=== PATIENT | female | born 1970 | race Caucasian/White ===

== ENCOUNTER → 2016-09-15 | Outpatient (CLI) | payer BC ==
[~2016-09-15] MED LIST: ASCO500T16 PO; CHOL100027 PO; DHEA PO; EVENING PRIMROSE PO; HYD10 PO; HYDR5TAB PO; HYDR5TAB57 PO; MIDODRINE 5 MG PO; MULTTAB58 PO; VITA400C3 PO
[2016-09-15 09:39] LABS: BASO % 0.3 %; BASO ABS # 0.02 K/uL (0-0.2); COMPLETE YES; HEMATOCRIT 39.6 % (37-47); IG% 0.1 %; LYMPH ABS # 2.39 K/uL (1.2-3.4); MEAN CELL VOLUME 95.7 fL (80-100); MEAN CORPUSCULAR HEMOGLOBIN 32.4 pg (25-34); MEAN CORPUSCULAR HGB CONC 33.8 g/dl (32-36); MEAN PLATELET VOLUME 10.8 fL (7.4-10.4); NEUT % 58.6 %; PLATELET COUNT 195 K/uL (130-400); RED BLOOD COUNT 4.14 M/uL (4.2-5.4); WHITE BLOOD COUNT 7.24 K/uL (4.8-10.8)
[2016-09-15 09:52] LABS: BLOOD UREA NITROGEN 12 mg/dl (7-18); BUN/CREATININE RATIO 16.4 (10-20); CALCIUM 8.5 mg/dl (8.5-10.1); CARBON DIOXIDE 25 mmol/L (21-32); CHLORIDE 108 mmol/L (98-107); CHOLESTEROL 142 mg/dl (0-200); CREATININE 0.72 mg/dl (0.60-1.20); GLUCOSE 82 mg/dl (70-99); POTASSIUM 3.7 mmol/L (3.5-5.1); SODIUM 144 mmol/L (136-145); TRIGLYCERIDES 109 mg/dl (0-150); VERY LOW DENSITY LIPOPROT CALC 22 mg/dl
[2016-09-15 10:02] LABS: CHOLESTEROL/HDL RATIO 1.9; FERRITIN 105.1 ng/ml (8.0-388.0); HDL CHOLESTEROL 74 mg/dl; LDL CHOLESTEROL CALCULATED 46 mg/dl; THYROID STIMULATING HORMONE < 0.005 uIu/ml (0.300-4.500)
== END | disposition home or self-care (01) ==
LOC: C.LAB 07:13
DX: E03.9 Hypothyroidism, unspecified (principal); R53.83 Other fatigue; E61.1 Iron deficiency; E55.9 Vitamin D deficiency, unspecified; Z13.220 Encounter for screening for lipoid disorders

== ENCOUNTER → 2016-12-04 | Outpatient (CLI) | payer BC ==
[2016-12-04 10:39] LABS: FERRITIN 110.5 ng/ml (8.0-388.0); THYROID STIMULATING HORMONE < 0.005 uIu/ml (0.300-4.500)
== END | disposition home or self-care (01) ==
LOC: C.LAB 07:11
PROVIDERS: ATTEND Internal Medicine Endocrinology, Diabetes & Metabolism
DX: E27.40 Unspecified adrenocortical insufficiency (principal); E03.9 Hypothyroidism, unspecified; E55.9 Vitamin D deficiency, unspecified; E61.1 Iron deficiency

== ENCOUNTER → 2017-05-25 | Outpatient (CLI) | payer BC ==
[2017-05-25 10:04] LABS: BASO % 0.2 %; BASO ABS # 0.02 K/uL (0-0.2); COMPLETE YES; EOS % 0.6 %; HEMATOCRIT 41.1 % (37-47); IG% 0.2 %; LYMPH % 13.1 %; LYMPH ABS # 1.64 K/uL (1.2-3.4); MEAN CELL VOLUME 95.6 fL (80-100); MEAN CORPUSCULAR HEMOGLOBIN 32.1 pg (25-34); MEAN CORPUSCULAR HGB CONC 33.6 g/dl (32-36); MEAN PLATELET VOLUME 10.8 fL (7.4-10.4); MONO % 5.9 %; PLATELET COUNT 227 K/uL (130-400); WHITE BLOOD COUNT 12.55 K/uL (4.8-10.8)
[2017-05-25 10:41] LABS: BLOOD UREA NITROGEN 13 mg/dl (7-18); BUN/CREATININE RATIO 20.6 (10-20); CALCIUM 8.5 mg/dl (8.5-10.1); CARBON DIOXIDE 26 mmol/L (21-32); CHLORIDE 108 mmol/L (98-107); CREATININE 0.64 mg/dl (0.60-1.20); GLUCOSE 74 mg/dl (70-99); SODIUM 141 mmol/L (136-145)
[2017-05-25 10:52] LABS: FERRITIN 95.5 ng/ml (8.0-388.0); THYROID STIMULATING HORMONE < 0.005 uIu/ml (0.300-4.500)
== END | disposition home or self-care (01) ==
LOC: C.LAB 07:21
DX: R53.83 Other fatigue (principal); E55.9 Vitamin D deficiency, unspecified; E61.1 Iron deficiency; I95.1 Orthostatic hypotension

== ENCOUNTER 2017-08-19 21:30 | Emergency (ER) | payer BC ==
[~2017-08-19] VITALS: Ht 172.7 cm; Wt 68.9 kg
[2017-08-19 21:30] VITALS: TEMP 37.1; Ht 172.7 cm; Wt 68.9 kg
[2017-08-19] MEDS ORDERED: PRAS1CAP4 PO (21:41)
[2017-08-19] MEDS ORDERED: HYD10 PO ×2 (21:46)
[2017-08-19] MEDS ORDERED: THYR180T PO (21:47)
[2017-08-19] MEDS ORDERED: TURM500C2 PO (21:48)
[2017-08-19] MEDS ORDERED: pregnenolone SL (21:50)
[2017-08-19] MEDS ORDERED: testosterone PV (21:55)
[2017-08-19] MEDS ORDERED: METHYLPREDNISOLONE 125 MG VIAL IV STA (22:22)
[2017-08-19] MEDS ORDERED: SODIUM CHLORIDE 0.9% 1000ML 1,000 ML IV STA (22:22)
[2017-08-19] MEDS ORDERED: ONDANSETRON INJ 2 MG/ML 2 ML VIAL IV STA (22:22)
[2017-08-19 22:31] LABS: BASO % 0.1 %; BASO ABS # 0.01 K/uL (0-0.2); EOS % 0.1 %; EOS ABS # 0.01 K/uL (0-0.5); HEMATOCRIT 46.3 % (37-47); HEMOGLOBIN 15.9 g/dL (12.0-16.0); IG# 0.03 K/uL (0.00-0.02); LYMPH % 2.9 %; LYMPH ABS # 0.37 K/uL (1.2-3.4); MEAN CELL VOLUME 95.3 fL (80-100); MEAN CORPUSCULAR HEMOGLOBIN 32.7 pg (25-34); MEAN CORPUSCULAR HGB CONC 34.3 g/dl (32-36); MONO % 3.1 %; MONO ABS # 0.39 K/uL (0.11-0.59); NEUT % 93.6 %; NEUT ABS # 11.83 K/uL (1.4-6.5); PLATELET COUNT 170 K/uL (130-400); RED CELL DISTRIBUTION WIDTH CV 12.5 % (11.5-14.5); RED CELL DISTRIBUTION WIDTH SD 43.4 fL (36.4-46.3); WHITE BLOOD COUNT 12.64 K/uL (4.8-10.8)
[2017-08-19 22:40] LABS: ALBUMIN 3.6 gm/dl (3.4-5.0); CALCIUM 8.5 mg/dl (8.5-10.1); CREATININE 0.87 mg/dl (0.60-1.20); POTASSIUM 3.4 mmol/L (3.5-5.1)
[2017-08-19 22:43] LABS: TOTAL PROTEIN 6.5 gm/dl (6.4-8.2)
[2017-08-19] MEDS ORDERED: IBUPROFEN 600 MG TAB PO STA (23:33)
[2017-08-20] MEDS ORDERED: ONDA4TAB10 SL (00:10)
--- NOTE | 2017-08-20 00:11 | EMERGENCY ROOM VISIT NOTE ---
History First contact with patient: 21:48 Chief Complaint: VOMITING Stated Complaint: NAUSEA, VOMITONG, DIARRHEA Nursing Triage Summary: Patient arrived via ALS from home. Patient c/o feeling tired and thirsty all day. Then around 1700, patient noted a fever and around 1730 patient began having N/V/D. Patient c/o headache. Denies CP or SOB. Patient was given 500 mL NSS and 4mg zofran by EMS. Patient has hx of adrenal insufficency. History of Present Illness The patient is a 46 year old female who presents to the Emergency Room with complaints of nausea, vomiting and diarrhea. The patient reports that she got the day today. Her hydrocortisone. She states that 4 hours prior to arrival, she developed nausea, vomiting and diarrhea. She has been unable to keep anything down. She reports abdominal discomfort but denies focal pain. She denies blood in her stools, hematemesis, chest pain, shortness of breath, upper respiratory symptoms. She states that she has felt slightly dizzy while walking around. Review of Systems A complete 10 point review of systems was reviewed with the patient with pertinent positives and negatives as per history of present illness. All else were negative. Past Medical/Surgical History Medical Problems: (1) CELIAC DISEASE (2) IRON DEFIC ANEMIA NOS Social History Smoking Status: Never Smoker Alcohol Use: occasionally Marital Status: Housing Status: lives with family Occupation Status: employed Current/Historical Medications Scheduled Ascorbic Acid (Ascorbic Acid), 1,000 MG PO DAILY Cholecalciferol (Vitamin D 1000 Unit), 5 CAPSULES PO DAILY Hydrocortisone (Cortef), 40 MG PO QAM Hydrocortisone (Cortef), 30 MG PO 1130 Hydrocortisone (Cortef), 20 MG PO QPM Multiple Vitamin (Multivitamin), 1 TAB PO DAILY Ondasetron Odt (Zofran Odt), 4 MG SL Q6H Prasterone (Dhea) (Dhea 25), 25 MG PO DAILY Thyroid (Wingina Thyroid), 180 MG PO DAILY Turmeric (Curcuma Longa) (Curcumin 95), 1 CAP PO DAILY Vitamin E (Vitamin E 400 Iu), 400 INTER.UNIT PO DAILY [Evening Sumner], 500 MG PO DAILY [pregnenolone], 25 MG SL DAILY [testosterone ], 2 ML PV DAILY Physical Exam Vital Signs Date Time Temp Pulse Resp B/P (MAP) Pulse Ox O2 Delivery O2 Flow Rate FiO2 2/8/18 00:32 74 20 128/72 98 08/19/17 23:09 84 20 132/86 96 Room Air 08/19/17 21:30 37.1 100 18 116/64 98 Room Air Physical Exam VITALS: Vitals are noted on the nurse's note and reviewed by myself. Vital signs stable. GENERAL: This is a 46-year-old female, in no acute distress, nondiaphoretic, well-developed well-nourished. HEART: Regular rate and rhythm without murmurs gallops or rubs. LUNGS: Clear to auscultation bilaterally without wheezes, rales or rhonchi. ABDOMEN: Positive bowel sounds x 4. Soft, mild generalized tenderness to palpation without focal tenderness. No guarding or rebound tenderness. NEURO: Patient was alert and oriented to person place and time. Medical Decision & Procedures Laboratory Results 08/19/17 21:30 Red Blood Count 4.86, Mean Corpuscular Volume 95.3, Mean Corpuscular Hemoglobin 32.7, Mean Corpuscular Hemoglobin Concent 34.3, Mean Platelet Volume 11.0, Neutrophils (%) (Auto) 93.6, Lymphocytes (%) (Auto) 2.9, Monocytes (%) (Auto) 3.1, Eosinophils (%) (Auto) 0.1, Basophils (%) (Auto) 0.1, Neutrophils # (Auto) 11.83, Lymphocytes # (Auto) 0.37, Monocytes # (Auto) 0.39, Eosinophils # (Auto) 0.01, Basophils # (Auto) 0.01 08/19/17 21:30 Test 08/19/17 21:30 White Blood Count 12.64 K/uL (4.8-10.8) Red Blood Count 4.86 M/uL (4.2-5.4) Hemoglobin 15.9 g/dL (12.0-16.0) Hematocrit 46.3 % (37-47) Mean Corpuscular Volume 95.3 fL (80-100) Mean Corpuscular Hemoglobin 32.7 pg (25-34) Mean Corpuscular Hemoglobin Concent 34.3 g/dl (32-36) Platelet Count 170 K/uL (130-400) Mean Platelet Volume 11.0 fL (7.4-10.4) Neutrophils (%) (Auto) 93.6 % Lymphocytes (%) (Auto) 2.9 % Monocytes (%) (Auto) 3.1 % Eosinophils (%) (Auto) 0.1 % Basophils (%) (Auto) 0.1 % Neutrophils # (Auto) 11.83 K/uL (1.4-6.5) Lymphocytes # (Auto) 0.37 K/uL (1.2-3.4) Monocytes # (Auto) 0.39 K/uL (0.11-0.59) Eosinophils # (Auto) 0.01 K/uL (0-0.5) Basophils # (Auto) 0.01 K/uL (0-0.2) RDW Standard Deviation 43.4 fL (36.4-46.3) RDW Coefficient of Variation 12.5 % (11.5-14.5) Immature Granulocyte % (Auto) 0.2 % Immature Granulocyte # (Auto) 0.03 K/uL (0.00-0.02) Anion Gap 7.0 mmol/L (3-11) Est Creatinine Clear Calc Drug Dose 80.6 ml/min Estimated GFR () 91.9 Estimated GFR (Non- 79.3 BUN/Creatinine Ratio 20.1 (10-20) Calcium Level 8.5 mg/dl (8.5-10.1) Total Bilirubin 0.8 mg/dl (0.2-1) Aspartate Amino Transf (AST/SGOT) 14 U/L (15-37) Alanine Aminotransferase (ALT/SGPT) 23 U/L (12-78) Alkaline Phosphatase 47 U/L (45-117) Total Protein 6.5 gm/dl (6.4-8.2) Albumin 3.6 gm/dl (3.4-5.0) Globulin 2.9 gm/dl (2.5-4.0) Albumin/Globulin Ratio 1.2 (0.9-2) Medications Administered Medications (Trade) Dose Ordered Sig/Rubi Route Start Time Stop Time Status Last Admin Dose Admin Ondansetron HCl (Zofran Inj) 4 mg NOW STAT IV 08/19/17 22:22 08/19/17 22:24 DC 08/19/17 22:38 4 MG Sodium Chloride 1,000 ml @ 999 mls/hr Q1H1M STAT IV 08/19/17 22:22 08/19/17 23:22 DC 08/19/17 22:37 999 MLS/HR Methylprednisolone Sodium Succinate (Solu-Medrol IV) 125 mg NOW STAT IV 08/19/17 22:22 08/19/17 22:24 DC 08/19/17 22:38 125 MG Ibuprofen (Motrin Tab) 600 mg NOW STAT PO 08/19/17 23:33 08/19/17 23:34 DC 08/19/17 23:37 600 MG Ondansetron HCl (ZOFRAN ODT 4MG Home Pack) 1 homepack UD ONCE PO 08/20/17 00:15 08/20/17 00:16 DC 08/20/17 00:31 1 HOMEPACK Medical Decision Differential diagnosis includes gastroenteritis, colitis, dehydration, among others. The patient is a 46-year-old female who presents today complaining of nausea, vomiting and diarrhea. Labs revealed no leukocytosis, anemia or concerning electrolyte abnormalities. Patient was treated with Zofran, IV steroids and 2 L normal saline solution. She was reevaluated and felt much better. She was able to tolerate fluids and walk around the room without difficulty. She was advised that the symptoms are likely secondary to a viral gastroenteritis. She was given a prescription for Zofran. She will follow-up with her primary care provider regarding her steroid dosing and will return here for any worsening or new/concerning symptoms. Based on the patient's presentation and work up, I feel the patient is stable for outpatient treatment. The patient was educated to return to the emergency department for any worsening of their current condition or new/concerning symptoms. She will follow up with her PCP. Medication Reconcilliation Current Medication List: was personally reviewed by me Blood Pressure Screening Patient's blood pressure: Normal blood pressure Impression Primary Impression: Nausea, vomiting, and diarrhea Departure Information Dispostion Home / Self-Care Condition GOOD Prescriptions Ondasetron Odt (ZOFRAN ODT) 4 Mg Tab 4 MG SL Q6H for Nausea, #20 TAB Prov: Yuliet Dukes PA-C 08/20/17 Referrals Reginald Pham Jr,D.O. (PCP) Patient Instructions My [facility] Additional Instructions You have been prescribed Zofran to be used for any nausea or vomiting. Take as prescribed. For pain control, you can use the following [id number] medicines (if >12 yo): - Regular strength (325mg/tab) Tylenol (acetaminophen) 2 tabs every 4-6 hours as needed. Do not exceed 12 tablets in a 24 hour period. Avoid taking more than 4 grams (4000 mg) of Tylenol per day. This includes any other sources of acetaminophen you may take on a regular basis. - Regular strength (200 mg/tab) Advil (ibuprofen) 1-2 tabs every 4-6 hours as needed. Do not exceed a dose of 3200 mg per day. Rest and drink plenty of fluids. Contact your primary care provider in the morning regarding your steroid dosage. Return to the emergency department if your symptoms start to worsen or if you have new/concerning symptoms.
[2017-08-20] MEDS ORDERED: ONDANSETRON HOME PACK 4MG OD TAB PO ONE (00:15)
[2017-08-20 00:32] VITALS: BP 128/72; PULSE 74; O2SAT 98
== END 2017-08-20 00:35 | disposition home or self-care (01) ==
LOC: EDBD 21:30 → C.EDA 21:31
DX: R11.2 Nausea with vomiting, unspecified (principal); R19.7 Diarrhea, unspecified; K90.0 Celiac disease; D50.9 Iron deficiency anemia, unspecified; Z79.899 Other long term (current) drug therapy

== ENCOUNTER → 2017-11-18 | Outpatient (CLI) | payer BC ==
[~2017-11-18] MED LIST changes: -DHEA PO; -HYDR5TAB PO; -HYDR5TAB57 PO; -MIDODRINE 5 MG PO; +ONDA4TAB10 SL; +PRAS1CAP4 PO; +THYR180T PO; +TURM500C2 PO; +pregnenolone SL; +testosterone PV
[2017-11-18 10:00] LABS: T3 FREE 4.02 pg/ml (2.30-4.20)
== END | disposition home or self-care (01) ==
LOC: C.LAB 07:40
PROVIDERS: ATTEND Internal Medicine Endocrinology, Diabetes & Metabolism
DX: E27.40 Unspecified adrenocortical insufficiency (principal); E03.9 Hypothyroidism, unspecified; E55.9 Vitamin D deficiency, unspecified